=== PATIENT | male | born 1990 | race Caucasian/White ===

== ENCOUNTER 2021-11-21 19:37 | Emergency (ER) | payer SELFPAY ==
[2021-11-21 19:44] VITALS: BP 146/84; PULSE 98; RESP 17; TEMP 37.1; O2SAT 98; BMI 21.5
--- NOTE | 2021-11-21 20:48 | W.ED.WOUNDLC ---
HPI - Wound/Laceration General: Chief Complaint: Wound/Laceration Stated Complaint: Left Finger Cut Time Seen by Provider: 11/21/21 20:47 History of Present Illness: 31-year-old male patient comes in today for injury to the left hand. Patient was using a ladies' hat trimmer when a wasp stung him causing him to jerk and pinch his finger in the tremor. Patient has a laceration to the index and middle finger of the left hand. Patient moves fingers without difficulty. Patient cannot recall his last tetanus. Patient denies any medical condition. Review of Systems General: Reports: 10 or more systems reviewed and unremarkable except in HPI and below Card: Denies: chest pain Musc: Reports: extremity pain Skin/Breast: Reports: new lesions Physical Exam Const: COMMON NORMALS: alert HENMT: COMMON NORMALS: normocephalic HEAD & SCALP: normocephalic Neck/C-Spine: COMMON NORMALS: full ROM Resp: COMMON NORMALS: normal respiratory effort Cardio: COMMON NORMALS: regular rate RATE: regular rate Extremity: LEFT UPPER EXTREMITY: Yes hand & digits (2 cm flap laceration to middle finger, 2-1/2 cm irregular lac index finger) Left hand and digits: Yes inspection, Yes palpation, Yes ROM and Yes neurovascular exam Neuro: SENSORIUM/ORIENTATION: Yes alert Procedures Laceration Laceration 1: Site: hand Side (If applicable): left Size (cm): 2 Description: flap Depth: simple, single layer Local Anesthetic: lidocaine 1% Amount of anesthesia used (mL): 2 Pre-repair: irrigated extensively Skin layer closed with: nylon Size (cm): 4-0 Number of sutures: 4 Technique: simple, interrupted Laceration 2: Site: hand Side (If applicable): left Size (cm): 2.5 Description: irregular Depth: simple, single layer Local Anesthetic: lidocaine 1% Amount of anesthesia used (mL): 3 Pre-repair: wound explored and irrigated extensively Skin layer closed with: nylon Size (cm): 4-0 Number of sutures: 6 Technique: simple, interrupted Course Vital Signs: Vital signs: Vital Signs Temperature 98.7 F 11/21/21 19:44 Pulse Rate 98 11/21/21 19:44 Respiratory Rate 17 11/21/21 19:44 Blood Pressure 146/84 11/21/21 19:44 Pulse Oximetry 98 11/21/21 19:44 MDM - Wound/Laceration Medical Decision Making 31-year-old male patient comes in with laceration to the index and middle finger of the left hand. On exam patient has good range of motion of the digits of the hand. Patient has a 2-1/2 cm irregular laceration to the left index finger. Patient has a 2 cm flap laceration to the left middle finger. Lacerations are noted on the volar aspect of the fingers. Differential diagnosis includes laceration, fracture, need for prophylaxis tetanus. Tetanus was updated. Wounds were cleaned and approximated and sutured with 4-0 Ethilon suture. Patient tolerated well. Patient will be continued on Augmentin twice a day for 7 days. Recommend sutures out in 7-10 days. Follow-up with primary care in 1 week. Discharge Plan Discharge Patient Disposition: Home Clinical Impression: Finger laceration Qualifiers: Encounter type: initial encounter Finger: unspecified finger Damage to nail status: without damage Foreign body presence: without foreign body Laterality: left Qualified Code(s): S61.219A - Laceration without foreign body of unspecified finger without damage to nail, initial encounter Condition: Stable Prescriptions: New amoxicillin-pot clavulanate 875-125 mg tablet 1 tab PO BID Qty: 14 0RF hydrocodone-acetaminophen 5-325 mg tablet 1 tab PO Q6H PRN (Reason: pain (scale score 7-10)) Qty: 6 0RF Discharge Orders: Discharge ED (Routine); Ordered 11/21/21 Ordered By: Vlad Alford Referrals: Asael Silva MD [Primary Care Provider] - Discharge Diet: Usual diet Discharge Activity: Increase activity as tolerated Patient Instructions: Laceration (ED), Opioid Safety Activity Restrictions/Additional Instructions: Keep wound clean and dry. Is important keep the wound as dry as possible for the next 48 hours. Take antibiotics as directed. Use acetaminophen and ibuprofen to control pain. Use hydrocodone for severe pain. Follow-up with primary care in 1 week for recheck. Sutures need to come out in 7 to 10 days. Coding Level of Care Code ED Cut Off Saw Tender [employer] for Suyapa Jiang
--- NOTE | 2021-11-21 21:36 | XRR_ITS ---
PROCEDURE INFORMATION: Exam: XR Left Hand Exam date and time: 11/21/2021 9:41 PM Age: 31 years old Clinical indication: Injury or trauma; Other: Laceration by hand zipper trimmer; Hand; Left; Additional info: Lac TECHNIQUE: Imaging protocol: Radiologic exam of the Left hand. Views: 3 or more views. COMPARISON: No relevant prior studies available. FINDINGS: Bones/joints: No fracture or other acute osseous abnormality. No acute joint abnormality demonstrated. Soft tissues: No radiopaque foreign body demonstrated in the soft tissues. XR/XR hand LT min 3V* [id number] IMPRESSION: 1. No radiopaque foreign body demonstrated in the soft tissues. 2. No acute fracture demonstrated.
[2021-11-21] MEDS: amoxicillin-clav 875-125 mg Tablet 1 TAB PO (21:38)
[2021-11-21] MEDS: tetanus-dipt-pertussis 0.5 mL SDV IM (21:38)
[2021-11-21] MEDS: HYDROcodone-acetaminophen 5-325 mg Tablet 1 TAB PO (22:32)
== END 2021-11-21 22:33 | disposition home or self-care (01) ==
PROVIDERS: Emergency Provider Nurse Practitioner Family; PCP Family Medicine
DX: S61.211A Laceration without foreign body of left index finger without damage to nail, initial encounter (principal); S61.213A Laceration without foreign body of left middle finger without damage to nail, initial encounter; W23.0XXA Caught, crushed, jammed, or pinched between moving objects, initial encounter; Z23 Encounter for immunization
CPT/HCPCS: 12002; 73130; 90471; 90715; 99283

== ENCOUNTER 2023-06-25 15:20 | Emergency (ER) | payer SELFPAY ==
[2023-06-25 15:28] VITALS: BP 155/86; PULSE 62; RESP 16; TEMP 36.6; O2SAT 100; BMI 21.5
--- NOTE | 2023-06-25 16:45 | ED_ITS ---
HPI - Dental/Oral 2 General: Chief complaint: Dental/Oral Stated complaint: top left tooth pain Time Seen by Provider: 06/25/23 16:42 Source: patient Mode of arrival: ambulatory Limitations: no limitations History of Present Illness: Patient is a 32-year-old male who presents to ED today with complaint of left upper dental pain. Patient states he has had a fractured/broken tooth there for quite some time but it has never really bothered him until the last week or so. Patient states he has a dentist appointment scheduled with Dr. Billingsley on Sunday. He has already seen at the clinic in [place] to get on antibiotics and is currently taking amoxicillin. Patient states he has been using OTC oral analgesics as well as Orajel and these are not controlling his discomfort. Patient is requesting something for pain on today's visit. MD Complaint: tooth pain and tooth injury Teeth map: 1. significantly fractured molar Onset (ago): day(s) Duration: constant Severity: severe Severity scale (1-10): 10 Relieving factors: nothing Exacerbating factors: nothing Associated symptoms: Denies ear or mastoid pain, fever(s) or odynophagia Treatment prior to arrival: topical analgesic and oral analgesic Review of Systems 2 Const: Denies: fever(s), chills, body aches, fatigue or malaise ENMT: Reports: dental pain; Denies: throat pain, enlarged tonsils, odynophagia, hoarseness, mouth pain, swelling of lips/tongue, oral sores, bleeding gums, ear or mastoid pain or sinus pain Musc: Denies: neck pain Neuro: Denies: headache(s) Physical Exam 2 Const: COMMON NORMALS: no acute distress, average body habitus, patient oriented x3, no limitations, healthy appearing, alert and well nourished HENMT: FACE & SINUS: normal facial exam and sinuses nontender; no erythema and no edema TEETH & GINGIVA IMAGES: 1. fractured molar; no surrounding edema or signs of infection Neck/C-Spine: GENERAL: Yes normal visual inspection, No anterior neck swelling and No submandibular swelling Neuro: COMMON NORMALS: patient oriented x3 SENSORIUM/ORIENTATION: Yes alert Course 2 Vital Signs: Vital signs: Vital Signs Temperature 97.9 F 06/25/23 15:28 Pulse Rate 62 02/26/24 15:28 Respiratory Rate 16 06/25/23 15:28 Blood Pressure 155/86 06/25/23 15:28 Pulse Oximetry 100 06/25/23 15:28 Oxygen Delivery Me thod Room Air 06/25/23 15:28 MDM - Dental/Oral Medical Decision Making Patient here requesting something for pain to help with pain associated with a significantly fractured left upper molar. There is no evidence for infection at this time. He is already on antibiotics. He has a dentist appointment scheduled in [address] Billingsley. Pain medications will be provided. Return ED precautions given. Differential Diagnosis Likely dental caries, toothache and dental abscess Medical Records I reviewed the patient's medical records. No radiology studies performed this visit Discharge Plan Discharge Patient Disposition: Home Clinical Impression: Toothache Fracture of tooth Qualifiers: Encounter type: initial encounter Fracture type: closed Qualified Code(s): S 02.5XXA - Fracture of tooth (traumatic), initial encounter for closed fracture Condition: Stable Prescriptions: New hydrocodone-acetaminophen 5-325 mg tablet 1 tab PO Q6H PRN (Reason: pain) Qty: 14 0RF Discontinued hydrocodone-acetaminophen 5-325 mg tablet 1 tab PO Q6H PRN (Reason: pain (scale score 7-10)) Qty: 6 0RF No Action amoxicillin-pot clavulanate 875-125 mg tablet 1 tab PO BID Qty: 14 0RF Discharge Orders: Discharge ED (Routine); Ordered 06/25/23 Ordered By: Sada Dunne Patient Instructions: Toothache (ED), Opioid Safety, Pain Management Activity Restrictions/Additional Instructions: As we discussed please follow-up with your dentist appointment as scheduled on Sunday for further evaluation and treatment plan in regards to your tooth. Coding Level of Care Code ED Process Checker for Suyapa Jiang
== END 2023-06-25 17:12 | disposition home or self-care (01) ==
PROVIDERS: Emergency Provider Physician Assistant
DX: S02.5XXA Fracture of tooth (traumatic), initial encounter for closed fracture (principal); X58.XXXA Exposure to other specified factors, initial encounter
CPT/HCPCS: 99283